=== PATIENT | male | born 2000 | race Two or more races ===

== ENCOUNTER 2025-01-12 11:38 | Emergency (ER) | payer OTHER ==
[~2025-01-12] VITALS: Ht 172.7 cm; Wt 111.8 kg
--- NOTE | 2025-01-12 11:59 | ECG ---
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
[2025-01-12 12:26] VITALS: PULSE 103; RESP 17
--- NOTE | 2025-01-12 12:26 | ED.PDOC ---
History of Present Illness HPI Comments This is a 24-year-old male who comes in with chief complaint of chest pain starting last week. The patient states that the pain is substernal and sharp in nature. Today at approximately 3:00 a.m. in the morning the patient then developed some shortness a breath which lasted approximately 30 minutes. He denies any nausea, vomiting or diarrhea but he is also having no cough. The patient states that the chest pain at that time was a 10/10 but it has gone down significantly. He was able to ambulate into the emergency department's without any difficulty. Chief Complaint: Shortness of Breath Time Seen by MD: 11:45 Reviewed Notes: Nurses Notes, Medications, Allergies (No allergies to medications) Allergies: Coded Allergies: NO KNOWN ALLERGIES (Unverified , 01/12/25) Information Source: Patient Mode of Arrival: Ambulatory Severity: Mild Timing: Days Duration: Intermittent Prehospital treatment: None Location: Substernal chest pain which is sharp in nature Associated signs and symptoms Shortness of breaths started at approximately 3:00 a.m. in the morning Past Medical History PAST MEDICAL HISTORY: Denies Surgical History: Denies all surgeries Family History Family History: Family hx of DM, Family hx of HTN Social History Smoker: Non-Smoker Alcohol: Denies ETOH Use Drugs: Denies Drug Use Lives In: Home Constitutional: denies: chills, diaphoresis, fatigue, fever, malaise, sweats, weakness, others EENTM: denies: blurred vision, double vision, ear bleeding, ear discharge, ear drainage, ear pain, ear ringing, eye pain, eye redness, hearing loss, mouth pain, mouth swelling, nasal discharge, nose bleeding, nose congestion, nose pain, photophobia, tearing, throat pain, throat swelling, voice changes, others Respiratory: reports: shortness of breath; denies: cough, hemoptysis, orthopnea, SOB at rest, SOB with excertion, stridor, wheezing, others Cardiovascular: reports: chest pain; denies: dizzy spells, diaphoresis, Dyspnea on exertion, edema, irregular heart beat, left arm pain, lightheadedness, palpit ations, PND, syncope, others Gastrointestinal: denies: abdomen distended, abdominal pain, blood streaked b owels, constipated, diarrhea, dysphagia, difficulty swallowing, hematemesis, melena, nausea, poor appetite, poor fluid intake, rectal bleeding, rectal pain, vomiting, others Genitourinary: denies: burning, dysuria, flank pain, frequency, hematuria, incontinence, penile discharge, penile sore, pain, testicle pain, testicle swelling, urgency, others Neurological: denies: dizziness, fainting, headache, left sided numbness, left sided weakness, numbness, paresthesia, pre-existing deficit, right sided numbness, right sided weakness, seizure, speech problems, tingling, tremors, weakness, others Musculoskeletal: denies: back pain, gout, joint pain, joint swelling, muscle pain, muscle stiffness, neck pain, others Integumetry: denies: bruises, change in color, change in hair/nails, dryness, laceration, lesions, lumps, rash, wounds, others Allergic/Immunocompromised: denies: Difficulty Healing, Frequent Infections, Hives, Itching, others Hematologic/Lymphatic: denies: anemia, blood clots, easy bleeding, easy bruisi ng, swollen glands, others Endocrine: denies: excessive hunger, excessive sweating, excessive thirst, exce ssive urination, flushing, intolerance to cold, intolerance to heat, unexplained weight gain, unexplained weight loss, others Psychiatric: denies: anxiety, bipolar disorder, depression, hopeless, panic disorder, schizophrenia, sleepless, suicidal, others Physical Exam General Appearance: No Apparent Distress HEENT: Normal ENT Inspection, Pharynx Normal, TMs Normal Neck: Full Range of Motion, Non-Tender, Normal, Normal Inspection Respiratory: Chest Non-Tender, Lungs Clear, No Accessory Muscle Use, No Respiratory Distress, Normal Breath Sounds Cardiovascular: No Edema, No JVD, No Murmur, No Gallop, Tachycardia Breast Exam: Deferred Gastrointestinal: No Organomegaly, Non Tender, No Pulsatile Mass, Normal Bowel Sounds, Soft Genitalia: Deferred Pelvic: Deferred Rectal: Deferred Extremities: No calf tenderness, Normal capillary refill, Normal inspection, Normal range of motion, Non-tender, No pedal edema Musculoskeletal : Apperance: Normal 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 Was a procedure done?: No EKG EKG : Pulse Rate (adult): 105 [place]: Normal Cardiac Rhythm: ST Block: None ST: Nonsp Differential Dx Considerations may include: ACS, LA, generalized weakness X-Ray, Labs, Meds, VS Vital Signs Date Time Temp Pulse Resp B/P (MAP) Pulse Ox O2 Delivery O2 Flow Rate FiO2 01/12/25 12:41 115 01/12/25 12:26 103 17 Room Air* 0 21 01/12/25 12:26 105 01/12/25 12:24 98.9 103 17 136/92 (107) 96 98.9 01/12/25 11:57 98.3 94 17 156/106 (123) 97 01/12/25 11:57 106 Lab Test 01/12/25 13:34 01/12/25 12:35 Range/Units Troponin I High Sensitivity < 3 L < 3 L </=54 ng/L White Blood Count 7.4 4.4-10.8 10^3/uL Red Blood Count 5.65 4.5-5.90 10^6/uL Hemoglobin 16.7 13.5-17.5 g/dL Hematocrit 48.4 41.0-53.0 % Mean Corpuscular Volume 85.7 80.0-100.0 fL Mean Corpuscular Hemoglobin 29.6 28.0-32.0 pg Mean Corpuscular Hemoglobin Concent 34.5 32.0-36.0 g/dL Red Cell Distribution Width 13.2 11.8-14.3 % Platelet Count 249 140-450 10^3/uL Mean Platelet Volume 8.3 6.9-10.8 fL Neutrophils (%) (Auto) 63.4 37.0-80.0 % Lymphocytes (%) (Auto) 22.3 10.0-50.0 % Monocytes (%) (Auto) 9.4 0.0-12.0 % Eosinophils (%) (Auto) 4.5 0.0-7.0 % Basophils (%) (Auto) 0.4 0.0-2.0 % Neutrophils # (Auto) 4.7 1.6-8.6 10 ^3/uL Lymphocytes # (Auto) 1.6 0.4-5.4 10 ^3/uL Monocytes # (Auto) 0.7 0-1.3 10 ^3/uL Eosinophils # (Auto) 0.3 0-0.8 10 ^3/uL Basophils # (Auto) 0 0-0.2 10 ^3/uL Nucleated Red Blood Cells 0.2 % D-Dimer, Quantitative 0.19 0.0-0.49 mg/L FEU Sodium Level 138 136-145 mmol/L Potassium Level 4.3 3.5-5.1 mmol/L Chloride Level 104 98-107 mmol/L Carbon Dioxide Level 25 20-31 mmol/L Anion Gap 9 5-15 Blood Urea Nitrogen 9 9-23 mg/dL Creatinine 0.81 0.700-1.30 mg/dL Glomerular Filtration Rate Calc 127 >90 mL/min BUN/Creatinine Ratio 11.1 10.0-20.0 Serum Glucose 202 H 74-106 mg/dL Calcium Level 10.4 8.7-10.4 mg/dL Total Bilirubin 0.4 0.2-1.0 mg/dL Aspartate Amino Transferase (AST) 96 H 13-40 U/L Alanine Aminotransferase (ALT) 212 H 7-40 U/L Alkaline Phosphatase 113 46-116 U/L Total Protein 7.9 5.7-8.2 g/dL Albumin 5.1 H 3.2-4.8 g/dL Current Medications Medications (Trade) Dose Ordered Sig/[place] Route Start Time Stop Time Status Last Admin Aspirin 162 mg ONCE ONCE PO 01/12/25 12:15 01/12/25 12:16 DC 01/12/25 12:30 The patient was given aspirin here in the emergency department's The CBC and chemistry panel are within normal limits The troponin level is negative The patient was given aspirin here in the emergency department's At this time, the troponin level repeat is negative The D-dimer is negative The patient was told to follow up with his primary care doctor The patient will return to the emergency department's condition worsens Images Reviewed?: Images reviewed and evaluated by me Time of 1ST Reevaluation: 12:25 Reevaluation 1ST: Unchanged Patient Education/Counseling: Diagnosis, Treatment, Prognosis, Need For Follow Up Family Education/Counseling: No Family Present Departure 1 Departure Time of Disposition: 14:32 Impression: Primary Impression: Non-cardiac chest pain Disposition: HOME / SELF CARE / HOMELESS Condition: Fair Discharged With: Self Critical Care Note Critical Care Time?: No Stability Stability form required: No Heart Score Heart Score: Heart Score Response (Comments) Value History Slightly Suspicious 0 EKG Normal 0 Age <45 0 Risk Factors No known risk factors 0 Troponin Normal limit 0 Total 0 TERRELL GARCIA MD Jan 12, 2025 12:26
--- NOTE | 2025-01-12 12:27 | DVH ---
EXAM: XY CHEST TWO VIEWS ROUTINE HISTORY: cp COMPARISON: None TECHNIQUE: Frontal and lateral views of the chest were performed. FINDINGS: No pneumothorax, pulmonary edema, pleural effusions, or consolidative infiltrates. There is slight re lative elevation of the right hemidiaphragm. The heart is not enlarged. No fractures are identified about the bony thorax. IMPRESSION: No acute intrathoracic process.
[2025-01-12] MEDS: ASPirin 81 mg TAB PO ONE (12:30)
--- NOTE | 2025-01-12 12:43 | ECG ---
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
[2025-01-12 12:57] LABS: Basophils # (auto) 0 10 ^3/uL (0-0.2); Basophils % (auto) 0.4 % (0.0-2.0); Eosinophils # (auto) 0.3 10 ^3/uL (0-0.8); Eosinophils % (auto) 4.5 % (0.0-7.0); Hematocrit 48.4 % (41.0-53.0); Hemoglobin 16.7 g/dL (13.5-17.5); Lymphocytes # (auto) 1.6 10 ^3/uL (0.4-5.4); Lymphocytes % (auto) 22.3 % (10.0-50.0); Mean Corpuscular Hemoglobin 29.6 pg (28.0-32.0); Mean Corpuscular Hgb Conc. 34.5 g/dL (32.0-36.0); Mean Corpuscular Volume 85.7 fL (80.0-100.0); Monocytes # (auto) 0.7 10 ^3/uL (0-1.3); Monocytes % (auto) 9.4 % (0.0-12.0); Neutrophils # (auto) 4.7 10 ^3/uL (1.6-8.6); Neutrophils % (auto) 63.4 % (37.0-80.0); Nucleated Red Blood Cells % 0.2 %; Platelet Count (auto) 249 10^3/uL (140-450); Red Blood Cells 5.65 10^6/uL (4.5-5.90); Red Cell Distribution Width 13.2 % (11.8-14.3); White Blood Cell 7.4 10^3/uL (4.4-10.8)
[2025-01-12 13:15] LABS: Alanine Aminotransferase 212 U/L (7-40); Albumin 5.1 g/dL (3.2-4.8); Alkaline Phosphatase 113 U/L (46-116); Anion Gap 9 (5-15); Aspartate Aminotransferase 96 U/L (13-40); BUN/Creatinine Ratio 11.1 (10.0-20.0); Bilirubin, Total 0.4 mg/dL (0.2-1.0); Blood Urea Nitrogen 9 mg/dL (9-23); Calcium 10.4 mg/dL (8.7-10.4); Carbon Dioxide 25 mmol/L (20-31); Chloride 104 mmol/L (98-107); Glucose 202 mg/dL (74-106); Potassium 4.3 mmol/L (3.5-5.1); Sodium 138 mmol/L (136-145); Total Protein 7.9 g/dL (5.7-8.2)
[2025-01-12 14:40] VITALS: BP 142/81; PULSE 110; RESP 18; TEMP 97.8; O2SAT 97
== END 2025-01-12 14:47 | disposition home or self-care (01) ==
LOC: ER 11:38
DX: R07.89 Other chest pain (principal)
CPT/HCPCS: 36415; 71046; 80053; 84484; 85025; 85379; 93005

== ENCOUNTER 2025-06-16 11:51 | Emergency (ER) | payer MEDICAID ==
[~2025-06-16] VITALS: Ht 172.7 cm; Wt 122.6 kg
--- NOTE | 2025-06-16 13:03 | DVH ---
EXAM: CT HEAD WITHOUT CONTRAST INDICATION: Left arm weakness TECHNIQUE: CT of the head without intravenous contrast. Radiation Dose Information: CT Dose: CTDI volume is 59.09 mGy. Dose-length product is 1164.45 mGy*cm The dose indicators for CT are the volume Computed Tomography (CT) Dose Index (CTDIvol) and the Dose Length Product (DLP), and are measured in units of mGy and mGy-cm, respectively. These indicators are not patient dose, but values generated from the CT scanner acquisition factors. The report includes radiation exposure data for exposures received during this examination. COMPARISON: None FINDINGS: There is no evidence of acute intracranial hemorrhage, extra-axial collection, mass effect, midline s hift, herniation or hydrocephalus. The ventricles, sulci and cisterns are age appropriate. The soto-white differentiation is intact. Patchy periventricular and subcortical white matter hypoattenuation is nonspecific but may be related to small vessel ischemic disease. The visualized paranasal sinuses and mastoid air cells are clear. The surrounding soft tissues and osseous structures are unremarkable. IMPRESSION: No acute intracranial abnormality.
--- NOTE | 2025-06-16 13:36 | ED.PDOC ---
Musculoskeletal HPI Comments 24-year-old male that presents to the ED for chief complaint of Lefu upper extremity numbness/weakness. The patient states that he woke up with the symptoms. Went to bed at usual time aprox 11:30 pm. Reports he went to [facility], underwent a EKG and blood work which showed negative results and was advised to visit his ED for further evaluation. Patient reports he continues to have left upper extremity weakness and loss of sensation. States that he can not lift his left arm above his shoulder. Patient in the ED otherwise alert and oriented x4 and non noticed changes in vision speech or gait are noted. Patient otherwise denies any other symptoms at this time. Chief Complaint: Upper Extremity Time Seen by MD: 12:30 Reviewed Notes: Nurses Notes, Medications, Allergies Allergies: Coded Allergies: NO KNOWN ALLERGIES (Unverified , 01/12/25) Information Source: Patient Mode of Arrival: Ambulatory Past Medical History PAST MEDICAL HISTORY: Denies Surgical History: Denies all surgeries Family History Family History: Family hx of DM, Family hx of HTN Social History Smoker: Non-Smoker Alcohol: Denies ETOH Use Drugs: Denies Drug Use Lives In: Home All Other Systems: Reviewed and Negative (See HPI) Physical Exam General Appearance: No Apparent Distress, Normal HEENT: Normal ENT Inspection, PERRL/EOMI (Denies vision loss, denies blurred vision, denies diplopia. No signs of nystagmus), Pharynx Normal, TMs Normal Neck: Full Range of Motion, Non-Tender, Normal, Normal Inspection Respiratory: Chest Non-Tender, Lungs Clear, No Accessory Muscle Use, No Respiratory Distress, Normal Breath Sounds Cardiovascular: No Edema, No JVD, No Murmur, No Gallop, Normal Peripheral Pulses, Regular Rate/Rhythm Breast Exam: Deferred Gastrointestinal: No Organomegaly, Non Tender, No Pulsatile Mass, Normal Bowel Sounds, Soft Genitalia: Deferred Pelvic: Deferred Rectal: Deferred Extremities: No calf tenderness, Normal capillary refill, Normal inspection, Normal range of motion, Non-tender, No pedal edema Musculoskeletal : Location: Left Extremity Location: Arm (Strength 3/5. [employer] weaker on left compared to right. No pronator drift. Unable to lift arm above the shoulder. No sensation to touch. Cap < 3 sec. Radial pulse 2+ ) Apperance: Normal Neurologic: Alert, Facial Droop (No facial droop), Motor Weakness (Left upper extremity motor weakness), Normal Affect, R/L Numbness (Left upper extremity numbness) Cerebellar Function: Normal Reflexes: Normal Skin: Dry, Normal Color, Warm Lymphatic: No Adenopathy Was a procedure done? Was a procedure done?: No Differential Diagnosis EXT Differential Diagnosis: Other (CVA, hemorrhagic stroke, multiple sclerosis, ALS) Other Differential Diagnosis Cervical lumbar radiculopathy muscle strain muscle spasm X-Ray, Labs, Meds, VS Vital Signs Date Time Temp Pulse Resp B/P (MAP) Pulse Ox O2 Delivery O2 Flow Rate FiO2 06/16/25 17:07 98.0 101 16 140/93 (109) 96 98.0 06/16/25 11:54 97.7 102 16 150/90 97 97.7 Lab Test 06/16/25 15:07 Range/Units White Blood Count 11.0 H 4.4-10.8 10^3/uL Red Blood Count 5.46 4.5-5.90 10^6/uL Hemoglobin 16.2 13.5-17.5 g/dL Hematocrit 46.2 41.0-53.0 % Mean Corpuscular Volume 84.6 80.0-100.0 fL Mean Corpuscular Hemoglobin 29.6 28.0-32.0 pg Mean Corpuscular Hemoglobin Concent 35.0 32.0-36.0 g/dL Red Cell Distribution Width 13.0 11.8-14.3 % Platelet Count 267 140-450 10^3/uL Mean Platelet Volume 8.0 6.9-10.8 fL Neutrophils (%) (Auto) 71.7 37.0-80.0 % Lymphocytes (%) (Auto) 19.4 10.0-50.0 % Monocytes (%) (Auto) 5.4 0.0-12.0 % Eosinophils (%) (Auto) 2.6 0.0-7.0 % Basophils (%) (Auto) 0.9 0.0-2.0 % Neutrophils # (Auto) 7.9 1.6-8.6 10 ^3/uL Lymphocytes # (Auto) 2.1 0.4-5.4 10 ^3/uL Monocytes # (Auto) 0.6 0-1.3 10 ^3/uL Eosinophils # (Auto) 0.3 0-0.8 10 ^3/uL Basophils # (Auto) 0.1 0-0.2 10 ^3/uL Nucleated Red Blood Cells 0.1 % Erythrocyte Sedimentation Rate 17 0-20 mm/hr Sodium Level 139 136-145 mmol/L Potassium Level 3.9 3.5-5.1 mmol/L Chloride Level 106 98-107 mmol/L Carbon Dioxide Level 23 20-31 mmol/L Anion Gap 10 5-15 Blood Urea Nitrogen 7 L 9-23 mg/dL Creatinine 0.62 L 0.700-1.30 mg/dL Glomerular Filtration Rate Calc 138 >90 mL/min BUN/Creatinine Ratio 11.3 10.0-20.0 Serum Glucose 98 74-106 mg/dL Calcium Level 9.7 8.7-10.4 mg/dL C-Reactive Protein High Sensitivity 1.19 H <1.0 mg/dL [place] [address] Ph: [phone] DIAGNOSTIC IMAGING Diagnostic Imaging Report : [id number] Signed PATIENT: KALYAN JAMES ACCT: [id number] UNIT: [id number] : 2000 LOC: ER ROOM / BED: / AGE / SEX: 24 / M ADM STATUS: REG ER SERVICE 1230 ORDERING PHYSICIAN: PEEWEE PEOPLES NP PROCEDURE(s): HWOCT - HEAD WITHOUT CONTRAST REASON: Left arm weakness ORDER NUMBER(s): [id number], ACCESSION NUMBER(s): [id number] EXAM: CT HEAD WITHOUT CONTRAST INDICATION: Left arm weakness TECHNIQUE: CT of the head without intravenous contrast. Radiation Dose Information: CT Dose: CTDI volume is 59.09 mGy. Dose-length product is 1164.45 mGy*cm The dose indicators for CT are the volume Computed Tomography (CT) Dose Index (CTDIvol) and the Dose Length Product (DLP), and are measured in units of mGy and mGy-cm, respectively. These indicators are not patient dose, but values generated from the CT scanner acquisition factors. The report includes radiation exposure data for exposures received during this examination. COMPARISON: None FINDINGS: There is no evidence of acute intracranial hemorrhage, extra-axial collection, mass effect, midline shift, herniation or hydrocephalus. The ventricles, sulci and cisterns are age appropriate. The soto-white differentiation is intact. Patchy periventricular and subcortical white matter hypoattenuation is nonspecific but may be related to small vessel ischemic disease. The visualized paranasal sinuses and mastoid air cells are clear. The surrounding soft tissues and osseous structures are unremarkable. IMPRESSION: No acute intracranial abnormality. ATED BY: TOÑO MADRID MD DICTATED DATE/TIME: 06/16/25 1300 SIGNED BY: TOÑO MADRID MD SIGNED DATE/TIME: 06/16/25 1300 CC: [place] [id number] Ph: [phone] DIAGNOSTIC IMAGING Diagnostic Imaging Report : [id number] Signed PATIENT: KALYAN JAMES ACCT: [id number] UNIT: [id number] : 2000 LOC: ER ROOM / BED: / AGE / SEX: 24 / M ADM STATUS: REG ER SERVICE 1647 ORDERING PHYSICIAN: ANGELLA MAK MD PROCEDURE(s): [place] - ANGIO HEAD/Neck REASON: LEFT ARM NUMBNESS ORDER NUMBER(s): [id number], ACCESSION NUMBER(s): [id number] INDICATION: LEFT ARM NUMBNESS COMPARISON: CT HEAD WITHOUT CONTRAST on DOS: 06/16/25 TECHNIQUE: CTA head with intravenous contrast. CTA neck with intravenous contrast. 3D image postprocessing was performed on a dedicated workstation and images were used for interpretation and reporting. Radiation Dose Information: CT Dose: CTDI volume is 7.76 mGy. Dose-length product is 2.81 mGy*cm FINDINGS: CTA head: There is normal enhancement of the visualized distal internal carotid, anterior and middle cerebral arteries. There is a normal anterior communicating artery complex. There are bilateral posterior communicating arteries. The vertebral, basilar, cerebellar and posterior cerebral arteries are within normal limits. The early parenchymal enhancement is grossly unremarkable. The visualized intracranial venous structures are grossly unremarkable. CTA neck: The visualized thoracic aortic arch and proximal great vessels are unremarkable. The left common, internal and external carotid arteries are within normal limits. The right common, internal and external carotid arteries are within normal limits. The cervical segments of the right and left vertebral arteries are within normal limits. The limited visualized lung apices are clear. The surrounding soft tissues and osseous structures are otherwise unremarkable. IMPRESSION: 1. No evidence of hemodynamically significant intracranial stenosis, proximal occlusion or aneurysm. 2. No evidence of hemodynamically significant cervical stenosis or dissection. All CT scans at this medical facility are performed using dose modulation techniques as appropriate to a performed exam including the following: Automated exposure control was utilized; adjustment of the MA and/or KV according to patient size; and use of iterative reconstruction technique. ATED BY: PK MELGAR MD DICTATED DATE/TIME: 06/16/251755 SIGNED BY: PK MELGAR MD SIGNED DATE/TIME: 06/16/251755 CC: . PATIENT: KALYAN JAMES ACCT: [id number] UNIT: [id number] : 2000 LOC: ER ROOM / BED: / AGE / SEX: 24 / M ADM STATUS: REG ER SERVICE 1647 ORDERING PHYSICIAN: ANGELLA MAK MD PROCEDURE(s): [place] - ANGIO HEAD/Neck REASON: LEFT ARM NUMBNESS ORDER NUMBER(s): [id number], ACCESSION NUMBER(s): [id number] INDICATION: LEFT ARM NUMBNESS COMPARISON: CT HEAD WITHOUT CONTRAST on DOS: 06/16/25 TECHNIQUE: CTA head with intravenous contrast. CTA neck with intravenous contrast. 3D image postprocessing was performed on a dedicated workstation and images were used for interpretation and reporting. Radiation Dose Information: CT Dose: CTDI volume is 7.76 mGy. Dose-length product is 2.81 mGy*cm FINDINGS: CTA head: There is normal enhancement of the visualized distal internal carotid, anterior and middle cerebral arteries. There is a normal anterior communicating artery complex. There are bilateral posterior communicating arteries. The vertebral, basilar, cerebellar and posterior cerebral arteries are within normal limits. The early parenchymal enhancement is grossly unremarkable. The visualized intracranial venous structures are grossly unremarkable. CTA neck: The visualized thoracic aortic arch and proximal great vessels are unremarkable. The left common, internal and external carotid arteries are within normal limits. The right common, internal and external carotid arteries are within normal limits. The cervical segments of the right and left vertebral arteries are within normal limits. The limited visualized lung apices are clear. The surrounding soft tissues and osseous structures are otherwise unremarkable. IMPRESSION: 1. No evidence of hemodynamically significant intracranial stenosis, proximal occlusion or aneurysm. 2. No evidence of hemodynamically significant cervical stenosis or dissection. All CT scans at this medical facility are performed using dose modulation techniques as appropriate to a performed exam including the following: Automated exposure control was utilized; adjustment of the MA and/or KV according to patient size; and use of iterative reconstruction technique. ATED BY: PK MELGAR MD DICTATED DATE/TIME: 06/16/251755 SIGNED BY: PK MELGAR MD SIGNED DATE/TIME: 06/16/251755 CC: X-Ray, Labs, Meds, VS Comment 24-year-old male with no MHx presents with numbness to the left upper extremity and weakness. Onset occurred this morning upon waking up. Patient arrives alert and oriented, ABC's intact, afebrile, vital signs stable, saturating well in room air This was worked up with a head CT which returned normal. No acute findings were found. Patient presented hours of onset and is not a candidate for thrombolytics NIH score calculated to 3 No other focal neurologic deficits found. Differentials considered but not limited to: hemorrhagic stroke, multiple sclerosis, ALS Peripheral IV insertion+ labs were ordered. CBC was ordered to exclude anemia, blood loss, or infection. BMP was ordered to exclude electrolyte abnormalities, renal failure, dehydration, hyperglycemia Urinalysis was ordered to rule out UTI or hematuria. Sed rate CRP were ordered. Head CT with no contrast ordered to rule out stroke. Results showed: No acute intracranial abnormality. It is uncertain if his symptoms represent a mild stroke. There are no ocular or extraocular findings to suggest cerebral venous thrombus. At this time I will consult with the [facility] for higher level of care. Patient may benefit from MRI or CT angio plus minus neuro consultation. Spoke with Dr. Victor at 16:[address] angio to rule out vessel occlusion. # [phone]. 17: 55: Spoke again with Dr. Victor and patient will be transferred to [facility] if CT angio negative. If CT negative order aspirin 81 p.o. a hand call [facility] to provide Angio results 18:06 CT angio results: IMPRESSION: 1. No evidence of hemodynamically significant intracranial stenosis, proximal occlusion or aneurysm. 2. No evidence of hemodynamically significant cervical stenosis or dissection. 81 mg of aspirin ordered. This patient will be endorsed to the not provide for continuity of care. Patient is stable at this time Time of 1ST Reevaluation: 17:48 Reevaluation 1ST: Unchanged Patient Education/Counseling: Diagnosis, Treatment Family Education/Counseling: No Family Present Departure 1 Departure Time of Disposition: 17:49 Impression: Primary Impression: Left arm numbness Additional Impression: Left arm weakness Disposition: 04 INTERMEDIATE CARE FACILITY Condition: Serious Critical Care Note Critical Care Time?: No Stability Stability form required: No Heart Score Heart Score: Heart Score Response (Comments) Value History N/A 0 EKG N/A 0 Age N/A 0 Risk Factors N/A 0 Troponin N/A 0 Total 0 I personally scribed for PEEWEE PEOPLES NP (HARVEY) on 06/16/25 at 13:36. Electronically submitted by Radha Adler ([employer]). I personally scribed for PEEWEE PEOPLES NP (HARVEY) on 06/16/25 at 13:48. Electronically submitted by Radha Adler ([employer]). I personally scribed for PEEWEE PEOPLES NP (MELOMA) on 06/16/25 at 18:05. Electronically submitted by Radha Adler ([employer]). PEEWEE PEOPLES NP Jun 16, 2025 13:36
[2025-06-16 15:16] LABS: Hematocrit 46.2 % (41.0-53.0); Hemoglobin 16.2 g/dL (13.5-17.5); Mean Corpuscular Hemoglobin 29.6 pg (28.0-32.0); Mean Corpuscular Volume 84.6 fL (80.0-100.0); Nucleated Red Blood Cells % 0.1 %
[2025-06-16 15:22] LABS: Chloride 106 mmol/L (98-107); Potassium 3.9 mmol/L (3.5-5.1); Sodium 139 mmol/L (136-145)
[2025-06-16 15:23] LABS: Anion Gap 10 (5-15); Carbon Dioxide 23 mmol/L (20-31)
[2025-06-16 15:24] LABS: Calcium 9.7 mg/dL (8.7-10.4)
[2025-06-16 15:28] LABS: BUN/Creatinine Ratio 11.3 (10.0-20.0); Glucose 98 mg/dL (74-106)
[2025-06-16 15:32] LABS: Blood Urea Nitrogen 7 mg/dL (9-23)
[2025-06-16] MEDS: IOHEXOL 300 MG/ML 100ML BOTTLE IJ ONE (17:13)
[2025-06-16] MEDS: IOHEXOL 350 MG/ML 100ML IJ ONE (17:13)
--- NOTE | 2025-06-16 17:58 | DVH ---
INDICATION: LEFT ARM NUMBNESS COMPARISON: CT HEAD WITHOUT CONTRAST on DOS: 06/16/25 TECHNIQUE: CTA head with intravenous contrast. CTA neck with intravenous contrast. 3D image postp rocessing was performed on a dedicated workstation and images were used for interpretation and report ing. Radiation Dose Information: CT Dose: CTDI volume is 7.76 mGy. Dose-length product is 2.81 mGy*cm FINDINGS: CTA head: There is normal enhancement of the visualized distal internal carotid, anterior and middle cerebral a rteries. There is a normal anterior communicating artery complex. There are bilateral posterior com municating arteries. The vertebral, basilar, cerebellar and posterior cerebral arteries are within n ormal limits. The early parenchymal enhancement is grossly unremarkable. The visualized intracrania l venous structures are grossly unremarkable. CTA neck: The visualized thoracic aortic arch and proximal great vessels are unremarkable. The left common, internal and external carotid arteries are within normal limits. The right common, internal and external carotid arteries are within normal limits. The cervical segments of the right and left vertebral arteries are within normal limits. The limited visualized lung apices are clear. The surrounding soft tissues and osseous structures ar e otherwise unremarkable. IMPRESSION: 1. No evidence of hemodynamically significant intracranial stenosis, proximal occlusion or aneurysm. 2. No evidence of hemodynamically significant cervical stenosis or dissection. All CT scans at this medical facility are performed using dose modulation techniques as appropriate t o a performed exam including the following: Automated exposure control was utilized; adjustment of th e MA and/or KV according to patient size; and use of iterative reconstruction technique.
[2025-06-16] MEDS: ASPirin-EC 81 mg tab PO ONE (18:14)
[2025-06-16 21:58] VITALS: BP 123/73; PULSE 97; RESP 19; TEMP 98.2; O2SAT 97
== END 2025-06-16 23:05 | disposition short-term general hospital (02) ==
LOC: ER 11:51
DX: R20.0 Anesthesia of skin (principal); R53.1 Weakness
CPT/HCPCS: 36415; 70450; 70496; 70498; 80048; 85025; 85652; 86141; 99285; Q9967